=== PATIENT | male | born 1950 | race Caucasian/White ===

== ENCOUNTER → 2024-03-28 08:29 | Outpatient (REF) | payer MEDICARE, SELFPAY ==
[2024-03-28 10:11] LABS: % Basophils 0.9 % (0-2); % Eosinophils 2.5 % (0-6); % Immature Granulocytes 0.5 % (0-0.5); % Lymphocytes 33.2 % (20.5-51.1); % Monocytes 10.4 % (1.7-9.3); % Neutrophils 52.5 % (42.2-75.2); Absolute Basophils 0.1 10^3/uL (0-0.2); Absolute Eosinophils 0.2 10^3/uL (0-0.7); Absolute Lymphocytes 2.5 10^3/uL (1.2-3.4); Absolute Monocytes 0.8 10^3/uL (0.1-0.6); Absolute Neutrophils 3.9 10^3/uL (1.4-6.5); Hematocrit 41.4 % (39.0-52.0); Hemoglobin 14.1 g/dL (13.0-18.0); Mean Corp Hgb Conc. 34.1 g/dL (33.0-37.0); Mean Corpuscular Hgb 27.9 pg (27.0-31.0); Mean Platelet Volume 9.7 fL (7.4-10.4); Nucleated Red Blood Cells % 0 % (-); Platelet Count 198 10^3/uL (130-400); Red Blood Cell Count 5.05 10^6/uL (4.70-6.10); Red Cell Dist. Width 13.1 % (11.5-14.5); White Blood Cell Count 7.5 10^3/uL (4.8-10.8)
[2024-03-28 10:36] LABS: Microalbumin, Random Urine 0.8 mg/dl (0.6-1.7); Microalbumin/creatinine Ratio 8.3 mg/g
[2024-03-28 10:39] LABS: ALT (SGPT) 17 U/L (0-50); AST (SGOT) 22 U/L (17-59); Albumin 4.4 g/dl (3.5-5.0); Alkaline Phosphatase 61 U/L (38-126); Blood Urea Nitrogen 23 mg/dl (9-20); Calcium 9.8 mg/dl (8.4-10.2); Carbon Dioxide 29 mmol/L (22-30); Chloride 99 mmol/L (98-107); Glucose 126 mg/dl (70-99); HDL Cholesterol 51 mg/dl; LDL Cholesterol, Calculated 147 mg/dl; Potassium 4.2 mmol/L (3.5-5.1); Sodium 141 mmol/L (135-145); Total Bilirubin 0.4 mg/dl (0.2-1.3); Total Cholesterol 221 mg/dl (50-199); Triglyceride 119 mg/dl (10-149); Very Low Density Lipoprotein 23 mg/dl (0-30); eGFR 56.93
[2024-03-28 11:06] LABS: TSH 1.98 uIU/ml (0.47-4.68)
[2024-03-28 11:11] LABS: Glycohemoglobin (HgbA1c) 6.7 % (4.0-5.6)
[2024-03-29 15:26] LABS: PSA Total 1.4 ng/mL (0.0-4.0)
== END ==
LOC: REG 08:29
PROVIDERS: ATTENDING PHYSICIAN Internal Medicine; REFERRING PHYSICIAN Urology
DX: I10 Essential (primary) hypertension (principal); R73.01 Impaired fasting glucose; Z00.00 Encounter for general adult medical examination without abnormal findings; E78.5 Hyperlipidemia, unspecified; C61 Malignant neoplasm of prostate
CPT/HCPCS: 36415; 80053; 80061; 82043; 82570; 83036; 84153; 84154; 84443; 85025

== ENCOUNTER → 2025-04-24 09:50 | Outpatient (REF) | payer MEDICARE, SELFPAY ==
[2025-04-24 11:57] LABS: Blood Urea Nitrogen 20 mg/dl (9-20); Calcium 9.5 mg/dl (8.4-10.2); Carbon Dioxide 30 mmol/L (22-30); Chloride 103 mmol/L (98-107); Glucose 128 mg/dl (70-99); Potassium 4.7 mmol/L (3.5-5.1); Sodium 139 mmol/L (135-145); eGFR 56.58
== END ==
LOC: REG 09:50
PROVIDERS: ATTENDING PHYSICIAN Physician Assistant; FAMILY PHYSICIAN Internal Medicine
DX: N28.89 Other specified disorders of kidney and ureter (principal)
CPT/HCPCS: 36415; 80048

== ENCOUNTER → 2025-05-10 08:03 | Outpatient (REF) | payer MEDICARE, SELFPAY ==
[2025-05-10 09:22] LABS: Hematocrit 42.2 % (39.0-52.0); Hemoglobin 13.7 g/dL (13.0-18.0); Mean Corp Hgb Conc. 32.5 g/dL (33.0-37.0); Mean Corpuscular Volume 87.0 fL (80.0-94.0); Nucleated Red Blood Cells % 0 % (-); Platelet Count 200 10^3/uL (130-400); Red Cell Dist. Width 13.0 % (11.5-14.5)
[2025-05-10 10:10] LABS: Microalbumin, Random Urine 0.9 mg/dl (0.6-1.7)
[2025-05-10 10:53] LABS: ALT (SGPT) 15 U/L (0-50); AST (SGOT) 19 U/L (17-59); Albumin 4.2 g/dl (3.5-5.0); Alkaline Phosphatase 54 U/L (38-126); Blood Urea Nitrogen 19 mg/dl (9-20); Calcium 9.6 mg/dl (8.4-10.2); Carbon Dioxide 30 mmol/L (22-30); Chloride 102 mmol/L (98-107); Glucose 134 mg/dl (70-99); HDL Cholesterol 42 mg/dl; LDL Cholesterol, Calculated 144 mg/dl; Potassium 4.1 mmol/L (3.5-5.1); Sodium 137 mmol/L (135-145); Total Protein 7.2 g/dl (6.3-8.2); Very Low Density Lipoprotein 41 mg/dl (0-30); eGFR 56.58
[2025-05-10 11:11] LABS: TSH 3.78 uIU/ml (0.47-4.68)
[2025-05-10 11:30] LABS: Glycohemoglobin (HgbA1c) 7.1 % (4.0-5.9)
== END ==
LOC: REG 08:03
PROVIDERS: ATTENDING PHYSICIAN Internal Medicine
DX: Z00.00 Encounter for general adult medical examination without abnormal findings (principal); E11.9 Type 2 diabetes mellitus without complications; R53.83 Other fatigue; C61 Malignant neoplasm of prostate; I10 Essential (primary) hypertension; R73.01 Impaired fasting glucose; E78.5 Hyperlipidemia, unspecified
CPT/HCPCS: 36415; 80053; 80061; 82043; 83036; 84153; 84154; 84443; 85025

== ENCOUNTER 2025-06-10 19:59 | Emergency (ER) | payer MEDICARE, SELFPAY ==
[2025-06-10 20:01] VITALS: BP 115/74
[2025-06-10 20:05] VITALS: BP 115/74
--- NOTE | 2025-06-10 20:10 | ED.GENMED ---
History of Present Illness
General
Chief Complaint: Fainting/Passed Out
Source: patient
Time Seen by Provider: 06/10/25 20:07
History of Present Illness
History of Present Illness:
75-year-old male with history of hypertension and [id number] diabetes presents via EMS from restaurant. Report from medics stated that he was witnessed to have syncopal episode. Patient describes an episode of lightheadedness nausea and
diaphoresis after eating dinner. There is no chest pain. He states he put his head down on the table but did not pass out. His blood pressure was low on EMS arrival but improved and route. He states he feels back to normal. He is not
anticoagulated. No recent travel or surgeries. He no other complaints at this time
Phy Exam
Physical Exam
Physical Exam:
General: Well-appearing male no acute respiratory distress HEENT: Normal cephalic atraumatic
Heart: Regular rate and rhythm lungs: Clear no wheeze
Extremities: No cyanosis
Neurologic exam: Alert and oriented
Course
Orders/Labs/Results
Orders:
Orders
06/10/25 20:08
Electrocardiogram (*1) Urgent
Reason for Study: Syncope
EKG- Treatment ONCE
06/10/25 20:11
Complete Blood Count/With Diff Urgent
Comprehensive Metabolic Panel Urgent
06/10/25 20:52
0.9% Sodium Chloride 500 ml [Nss] 500 ml IV BOLUS
Abnormal Lab Results
06/10/25 06/10/25
20:11 20:19
Hct 38.8 L %
(39.0-52.0)
Abs Immat Gran (auto) 0.1 H 10^3/uL
(0-0.05)
Absolute Neuts (auto) 7.3 H 10^3/uL
(1.4-6.5)
Immature Gran % 0.6 H %
(0-0.5)
BUN 25 H mg/dl
(9-20)
Creatinine 1.5 H mg/dL
(0.7-1.3)
Glucose 204 H mg/dl
(70-99)
POC Glucose 216 H mg/dl
(70-99)
06/10/25 20:11
06/10/25 20:11
Vital Signs
Initial and Last Documented VS:
Initial Vital Signs
Temp Pulse Resp BP Pulse Ox
97.7 F 72 14 115/74 100
06/10/25 20:01 06/10/25 20:01 06/10/25 20:01 06/10/25 20:01 06/10/25 20:01
Last Documented Vital Signs
Temp Pulse Resp BP Pulse Ox
97.7 F 73 17 115/74 95
06/10/25 20:01 06/10/25 20:15 06/10/25 20:15 06/10/25 20:05 06/10/25 20:15
MDM/Problems Addressed
Differential Diagnosis Includes:
Patient with near syncopal versus syncopal episode after eating dinner. He had preceding symptoms. But will consider arrhythmia versus anemia versus electrolyte abnormality. Will place on interviewing clerk obtain EKG and labs.
*Pulse Oximetry
SaO2: 97
Oxygen Mode of Delivery: Room air
Patient hypoxic: no
*Critical Care Note
Total Time (30-74mins, 75-104mins- exclusive of procedures): Not Applicable
Update Note
Update Note:
Patient evaluated labs reviewed creatinine 1.5 which is close to his baseline of 1.3. Patient was hydrated. No arrhythmias noted on monitor. Anemic. He ambulated on his feet well without any further presyncopal symptoms. No indication for
admission will recommend follow-up with recreation coordinator. Suspect vasovagal episode
ED Attending Note
-
Portions of this chart may have been created with voice recognition software.� Occasional wrong word or��sound alike� substitutions may have occurred due to the inherent limitations of voice recognition software.
Discharge Plan
Departure
Patient Disposition: Home (Routine Discharge)
Date of Disposition: 06/10/25
Time of Disposition: 23:10
Patient with high blood pressure during this ER visit?: No
Discharge Problem:
Near syncope
Instructions: Syncope (Fainting) (DC)
Activity Restrictions/Additional Instructions:
Stay hydrated. Return here for worsening symptoms otherwise follow-up with your recreation coordinator
Interventions
Interventions:
*Risk Screen - Suicide Last Done: 06/10/25 20:01
*General Assessment Last Done: 06/10/25 20:01
*Neglect/Abuse Screening Last Done: 06/10/25 20:01
*ED COVID-19 Vaccine History Last Done: 06/10/25 20:01
*ED Influenza Vaccine History Last Done: 06/10/25 20:01
[facility] Fall Risk Assessment Tool Last Done: 06/10/25 20:21
ED- Cardiac Assessment Last Done: 06/10/25 20:22
ED- Neurological Assessment Last Done: 06/10/25 20:22
ED- Cardiac Assessment Last Done: 06/10/25 20:22
ED- Neurological Assessment Last Done: 06/10/25 20:22
Discharge Date and Time
Print Language: KOREAN
[2025-06-10 20:17] LABS: Hematocrit 38.8 % (39.0-52.0); Hemoglobin 13.4 g/dL (13.0-18.0); Mean Corp Hgb Conc. 34.5 g/dL (33.0-37.0); Mean Corpuscular Volume 82.2 fL (80.0-94.0); Nucleated Red Blood Cells % 0 % (-); Platelet Count 206 10^3/uL (130-400); Red Cell Dist. Width 13.0 % (11.5-14.5)
[2025-06-10 20:21] LABS: Glucose - Point of Care 216 mg/dl (70-99)
[2025-06-10 20:30] LABS: ALT (SGPT) 15 U/L (0-50); AST (SGOT) 22 U/L (17-59); Albumin 4.5 g/dl (3.5-5.0); Alkaline Phosphatase 53 U/L (38-126); Blood Urea Nitrogen 25 mg/dl (9-20); Calcium 9.6 mg/dl (8.4-10.2); Carbon Dioxide 26 mmol/L (22-30); Chloride 101 mmol/L (98-107); Glucose 204 mg/dl (70-99); Potassium 3.6 mmol/L (3.5-5.1); Sodium 136 mmol/L (135-145); Total Protein 7.3 g/dl (6.3-8.2); eGFR 47.65
[2025-06-10 21:00] VITALS: BP 129/78
[2025-06-10] MEDS: NSS 500 IV (21:20)
[2025-06-10 22:00] VITALS: BP 129/69
== END 2025-06-10 23:43 | disposition home or self-care (01) ==
LOC: EMR 19:59
PROVIDERS: Physician Assistant; EMERGENCY PHYSICIAN Emergency Medicine; FAMILY PHYSICIAN Internal Medicine
DX: R55 Syncope and collapse (principal); E11.9 Type 2 diabetes mellitus without complications; I10 Essential (primary) hypertension; Z79.84 Long term (current) use of oral hypoglycemic drugs
CPT/HCPCS: 99284; 96360; 80053; 82962; 85025; 93005